=== PATIENT | male | born 1960 | race Caucasian/White ===

== ENCOUNTER 2016-08-17 08:28 | Day surgery (SDC) | payer BC ==
[2016-08-17] MEDS ORDERED: MIDAZOLAM HCL 2MG/2ML VIAL IV ONE (14:00)
[2016-08-17] MEDS ORDERED: LIDOCAINE 2% MDV (20MG/ML) 20ML VIAL IV ONE ×2 (14:00→14:28)
[2016-08-17] MEDS ORDERED: PROPOFOL 10 MG/ML VIAL IV ONE (14:00)
[2016-08-17] MEDS ORDERED: PHENYLEPHRINE HCL 2.5% OPTH 2ML BTL OP ONE (14:28)
[2016-08-17] MEDS ORDERED: TETRACAINE HCL 0.5% 15 ML OPTH BTL OPTH ONE (14:28)
[2016-08-17] MEDS ORDERED: EPINEPHRINE 1 MG/ML AMPUL SQ ONE (14:28)
[2016-08-17] MEDS ORDERED: TROPICAMIDE 1% 15ML BTL OP ONE (14:28)
[2016-08-17] MEDS ORDERED: TOBRAMYCIN 0.3% OPTH DROP 5 ML BTL OPTH ONE (14:28)
[2016-08-17] MEDS ORDERED: TETRACAINE HCL 0.5% OPTH 2ML SOLU OPTH ONE (14:28)
[2016-08-17] MEDS ORDERED: PREDNISOLONE ACETATE 1% OPTH 10ML BOTTLE OPTH ONE (14:28)
[2016-08-17] MEDS ORDERED: DICLOFENAC SODIUM 2.5 ML DROPS OPTH ONE (14:28)
[2016-08-17] MEDS ORDERED: NEOMYCIN/POLY./DEXAM OPTH OINT OPTH ONE (14:28)
[2016-08-17] MEDS ORDERED: LIDOCAINE 1% MPF 100MG/10ML AMPULE IV ONE (14:28)
--- NOTE | 2016-08-17 14:58 | OP NOTE CHAMES ---
DATE OF PROCEDURE: 08/17/16 PREOPERATIVE DIAGNOSIS: Nuclear sclerotic and cortical cataract, left eye. POSTOPERATIVE DIAGNOSIS: Nuclear sclerotic and cortical cataract, left eye. OPERATION: Phacoemulsification of cataractous lens with implantation of intraocular lens. LENS IMPLANT USED: Garcia Model PCB00 + 15.5 diopters. COMPLICATIONS: None. PROCEDURE IN DETAIL: Following a retrobulbar and facial block, the patient was prepped and draped in the usual fashion for eye surgery. A lid speculum was placed in the left eye after which a 2.4 mm tunnel wound was placed at the temporal limbus and dissected into clear cornea. A paracentesis was placed at 2 oclock hours to the left and right of the initial incision and the chamber deepened with Viscoelastic. The keratome was then used to enter the anterior chamber after which the continuous circular capsulorrhexis was accomplished without difficulty using a bent needle and a Utrata forceps. Hydrodissection and hydrodelineation of the lens was performed after which the nucleus of the lens was removed using the Phaco handpiece in the [id number] technique. The residual cortical material was irrigated and aspirated from the eye after which the bag and chamber were re-examined. The bag was re-inflated with Viscoelastic and the intraocular lens injected into the capsular bag where it centered well. The Viscoelastic was then copiously irrigated and aspirated from the eye after which the temporal tunnel wound and paracentesis were hydrated and the wounds were examined. They were noted to be watertight. The lid speculum was removed from the eye and the eye patched and shielded. The patient was transferred to the recovery room in satisfactory condition and given an appointment to be reexamined in the clinic later today or as directed by Dr. Dumont. aJiro Dumont M.D. Date & Time JOB NUMBER: [id number] MTDD
== END 2016-08-17 11:17 | disposition home or self-care (01) ==
LOC: SUR 08:28
PROVIDERS: ATTEND Ophthalmology
DX: H25.12 Age-related nuclear cataract, left eye (principal)
CPT/HCPCS: J0171; J3490

== ENCOUNTER 2016-08-31 09:18 | Day surgery (SDC) | payer BC ==
[2016-08-31] MEDS ORDERED: MIDAZOLAM HCL 2MG/2ML VIAL IV ONE (14:00)
[2016-08-31] MEDS ORDERED: PROPOFOL 10 MG/ML VIAL IV ONE (14:00)
[2016-08-31] MEDS ORDERED: LIDOCAINE 2% MDV (20MG/ML) 20ML VIAL IV ONE ×2 (14:00→15:26)
[2016-08-31] MEDS ORDERED: NEOMYCIN/POLY./DEXAM OPTH OINT OPTH ONE (15:26)
[2016-08-31] MEDS ORDERED: TETRACAINE HCL 0.5% OPTH 2ML SOLU OPTH ONE (15:26)
[2016-08-31] MEDS ORDERED: LIDOCAINE 1% MPF 100MG/10ML AMPULE IV ONE (15:26)
[2016-08-31] MEDS ORDERED: TROPICAMIDE 1% 15ML BTL OP ONE (15:26)
[2016-08-31] MEDS ORDERED: TETRACAINE HCL 0.5% 15 ML OPTH BTL OPTH ONE (15:26)
[2016-08-31] MEDS ORDERED: DICLOFENAC SODIUM 2.5 ML DROPS OPTH ONE (15:26)
[2016-08-31] MEDS ORDERED: PREDNISOLONE ACETATE 1% OPTH 10ML BOTTLE OPTH ONE (15:26)
[2016-08-31] MEDS ORDERED: TOBRAMYCIN 0.3% OPTH DROP 5 ML BTL OPTH ONE (15:26)
[2016-08-31] MEDS ORDERED: PHENYLEPHRINE HCL 10% OPTH BTL OPTH ONE (15:26)
[2016-08-31] MEDS ORDERED: EPINEPHRINE 1 MG/ML AMPUL SQ ONE (15:26)
--- NOTE | 2016-09-04 17:17 | Operative Note ---
DATE OF PROCEDURE: 08/31/2016. PREOPERATIVE DIAGNOSIS: Nuclear sclerotic and cortical cataract, right eye. POSTOPERATIVE DIAGNOSIS: Nuclear sclerotic and cortical cataract, right eye. OPERATION: Phacoemulsification of cataractous lens with implantation of intraocular lens. LENS IMPLANT USED: Garcia Model PCB00 + 16.5 diopters. COMPLICATIONS: None. PROCEDURE IN DETAIL: Following a retrobulbar and facial block, the patient was prepped and draped in the usual fashion for eye surgery. A lid speculum was placed in the right eye after which a 2.4 mm tunnel wound was placed at the temporal limbus and dissected into clear cornea. A paracentesis was placed at 2 oclock hours to the left and right of the initial incision and the chamber deepened with Viscoelastic. The keratome was then used to enter the anterior chamber after which the continuous circular capsulorrhexis was accomplished without difficulty using a bent needle and a Utrata forceps. Hydrodissection and hydrodelineation of the lens was performed after which the nucleus of the lens was removed using the Phaco handpiece in the [id number] technique. The residual cortical material was irrigated and aspirated from the eye after which the bag and chamber were re-examined. The bag was re-inflated with Viscoelastic and the intraocular lens injected into the capsular bag where it centered well. The Viscoelastic was then copiously irrigated and aspirated from the eye after which the temporal tunnel wound and paracentesis were hydrated and the wounds were examined. They were noted to be watertight. The lid speculum was removed from the eye and the eye patched and shielded. The patient was transferred to the recovery room in satisfactory condition and given an appointment to be reexamined in the clinic later today or as directed by Dr. Dumont. Jairo Dumont M.D. Date & Time JOB NUMBER: [id number] MTDD
== END 2016-08-31 12:00 | disposition home or self-care (01) ==
LOC: SUR 09:18
PROVIDERS: ATTEND Ophthalmology
DX: H25.11 Age-related nuclear cataract, right eye (principal); H25.011 Cortical age-related cataract, right eye
CPT/HCPCS: J0171; J3490

== ENCOUNTER 2016-10-30 12:07 | Emergency (ER) | payer BC ==
--- NOTE | 2016-10-30 13:24 | Emergency Department Record ---
History of Present Illness - General Chief Complaint: Back Pain/Injury Stated Complaint: LOW BACK PAIN Time Seen by Provider: 10/30/16 13:09 Source: Patient Mode of Arrival: Ambulatory Limitations: No limitations - History of Present Illness Initial Comments: The patient is here due to R lower back pain for the last 36 hours. The onset was during sleep. The pain is a sharp stabbing pain in the R lower back that is worse with any movement and twisting. He denies any pain radiating down the legs or any leg numbness, weakness or any bowel or bladder issues. The patient also denies any AP, nausea, vomiting, or fevers. The patient states he has a hx of kidney stones but this feels different. MD Complaint: Back pain Onset/Timin -: Days(s) Similar Symptoms Previously: No Place: Home Radiation: None Severity: Moderate Severity scale (1-10): 7 Quality: Aching, Sharp Consistency: Constant Improves With: None Worsens With: Movement, Sitting upright, Other Context: Unknown, History of kidney stones Associated Symptoms: Denies other symptoms - Related Data Home Medications Medication Instructions Recorded Confirmed Last Taken Celecoxib [Celebrex] 200 mg PO DAILY 12/06/13 10/30/16 04/26/14 Nortriptyline HCl [Pamelor] 100 mg PO DAILY 12/06/13 10/30/16 04/26/14 Topiramate [Topamax] 50 mg PO DAILY 12/06/13 10/30/16 04/26/14 Sumatriptan Succinate [Imitrex] 25 mg PO BID PRN 04/26/14 10/30/16 Unknown Zolpidem Tartrate [Zolpidem 12.5 mg PO QHS #30 01/21/16 10/30/16 Unknown Tartrate Er] Tramadol HCl [Ultram] 50 mg PO ASDIR 10/30/16 10/30/16 Unknown Previous Rx's Medication Instructions Recorded Cyclobenzaprine HCl [Flexeril] 10 mg PO TID PRN #20 tablet 10/30/16 Allergies Allergy/AdvReac Type Severity Reaction Status Date / Time moxifloxacin HCl Allergy RASH Unverified 01/21/16 09:42 [From Avelox] Travel Screening - Travel/Exposure Within Last 30 Days Have you traveled within the last 30 days?: No Review of Systems Constitutional: Denies: Chills, Fever Eyes: Denies: Eye discharge ENT: Denies: Congestion Respiratory: Denies: Cough, Dyspnea Past Medical History - SOCIAL HISTORY Smoking Status: Never smoker Alcohol Use: None Drug Use: None - RESPIRATORY Hx Respiratory Disorders: Yes Hx Sleep Apnea: Yes Hx of CPAP: Yes - CARDIOVASCULAR Hx Cardio Disorders: No Comment:: occ fast heart rate r/t pain - NEURO Hx Neuro Disorders: Yes Hx Headaches: Yes Hx of Migraines: Yes (injectios helped for 7-8 wks with migraines) Comment:: VISION CHANGE right EYE - GI Hx GI Disorders: No - Hx Genitourinary Disorders: Yes Hx Kidney Stones: Yes (for 20 years) - ENDOCRINE Hx Endocrine Disorders: No - MUSCULOSKELETAL Hx Musculoskeletal Disorders: Yes Hx Arthritis: Yes (osteoarthritis joints) Hx Osteoporosis: No Comment:: back pain, problems, sciatic pain gets injections - PSYCH Hx Psych Problems: No - HEMATOLOGY/ONCOLOGY Hx Hematology/Oncology Disorders: No Family Medical History Any Significant Family History?: Yes Hx Cancer: Father Hx Diabetes: Mother Hx Heart Disease: Father Hx HTN: Father Hx Kidney Disease: Father, Mother Hx Stroke: Father *Stroke Comment: Father has Parkinson's / ALS Physical Exam - General General Appearance: Alert, Oriented x3, Cooperative, No acute distress - Head Head exam: Atraumatic, Normocephalic, Normal inspection - Eye Eye exam: Normal appearance, PERRL - Neck Neck exam: Normal inspection, Full ROM. negative: Tenderness - Respiratory Respiratory exam: Normal lung sounds bilaterally. negative: Respiratory distress - Cardiovascular Cardiovascular Exam: Regular rate, Normal rhythm, Normal heart sounds - GI/Abdominal GI/Abdominal exam: Soft, Normal bowel sounds. negative: Guarding, Rebound, Rigid, Tenderness - Extremities Extremities exam: Normal inspection, Full ROM, Normal capillary refill. negative: Tenderness - Back Back exam: Reports: Normal inspection, Paraspinal tenderness (There is very reproducible tenderness to the R upper paraspinal lumbar area. There is no swelling, rashes or erythema appreciated.). Denies: Vertebral tenderness - Neurological Neurological exam: Alert, Normal gait, Oriented X3, Reflexes normal. negative: Abnormal gait, Motor sensory deficit Course Vital Signs 10/30/16 12:45 Temperature 98.2 F Pulse Rate 103 H Respiratory 22 Rate Blood Pressure 111/69 Pulse Ox 92 L - Reevaluation(s) Reevaluation #1: The patient is doing much better. His pain is improved and he feels much more comfortable. He is able to walk with no difficulty and is ready for home. I did explain to him the need for rest and to take the pain medicines. He also is to F /U with Dr. Combs for his L inguinal hernia. 10/30/16 14:31 Medical Decision Making - Data Complexity MDM Data: Labs Ordered and/or Reviewed, X-Ray Ordered and/or Reviewed - Lab Data Result diagrams: 10/30/16 13:36 10/30/16 13:36 - Radiology Data Radiology results: Report reviewed (CT: Neg ureter stone or hydro.) Disposition Disposition: Discharge Clinical Impression: Low back pain Qualifiers: Chronicity: acute Back pain laterality: unspecified Sciatica presence: without sciatica Qualified Code(s): M54.5 - Low back pain Disposition: Home, Self-Care Condition: (1) Good Instructions: Low Back Strain (ED) Additional Instructions: Please continue to take your home pain medicines. Please add Flexeril if needed. Please return to the ER for any increased pain, leg weakness, numbness or any bowel or bladder issues. Prescriptions: Cyclobenzaprine HCl [Flexeril] 10 mg PO TID PRN #20 tablet PRN Reason: Pain Forms: Patient Portal Access Time of Disposition: 14:34
[2016-10-30 13:42] LABS: URINE APPEARANCE CLEAR; URINE BILIRUBIN NEGATIVE (NEGATIVE); URINE BLOOD SMALL (NEGATIVE); URINE COLOR YELLOW; URINE GLUCOSE (UA) NEGATIVE (NEGATIVE); URINE KETONE NEGATIVE (NEGATIVE); URINE LEUKOCYTE ESTERASE NEGATIVE (NEGATIVE); URINE NITRITE NEGATIVE (NEGATIVE); URINE PROTEIN NEGATIVE (NEGATIVE); URINE UROBILINOGEN 0.2 E.U./dL (0.20 - 1.00)
[2016-10-30 13:43] LABS: HEMATOCRIT 49.5 % (42.0-52.0); HEMOGLOBIN 15.7 gm/dl (14.0-18.0); MEAN CELL VOLUME 90.3 fl (81-97); MEAN CORPUSCULAR HEMOGLOBIN 28.6 pg (27-33); MEAN CORPUSCULAR HGB CONC 31.7 g/dl (32-36); MEAN PLATELET VOLUME 9.7 fl (7.4-10.4); PLATELET COUNT 194 K/uL (130-400); RED BLOOD COUNT 5.48 M/uL (4.40-5.70); RED CELL DISTRIBUTION WIDTH 15.1 % (11.5-14.5); WHITE BLOOD COUNT W/O DIFF 8.4 K/uL (4.2-12.2)
[2016-10-30 13:51] LABS: URINE BACTERIA NONE SEEN; URINE EPITHELIAL CELLS 0 - 2 (FEW); URINE WBC 0 - 2 (0-2/hpf)
[2016-10-30 13:55] LABS: ANION GAP 9.3 (7-16); BLOOD UREA NITROGEN 24 mg/dL (9-20); CARBON DIOXIDE 22.7 mmol/L (22-30); EST GLOMERULAR FILTRATION RATE > 60 ml/min; GLUCOSE,RANDOM 113 mg/dL (70-110)
[2016-10-30] MEDS ORDERED: KETOROLAC 30 MG/ML VIAL IM ONE (13:57)
== END 2016-10-30 14:50 | disposition home or self-care (01) ==
LOC: ER 12:07
DX: M54.5 Low back pain (principal); Z87.442 Personal history of urinary calculi
CPT/HCPCS: 74176; 80048; 81001; 85027; 96372; 99283; 99284; J1885